=== PATIENT | female | born 1940 | race Caucasian/White ===

== ENCOUNTER 2019-11-21 14:19 | Inpatient (IN) | payer MEDICARE ==
[~2019-11-21] VITALS: Ht 162.6 cm; Wt 71.2 kg
[2019-11-21 14:50] LABS: Source, Urine Catheter
[2019-11-21 14:55] LABS: BASOPHILS ABSOLUTE AUTO 0.05 K/mm3 (0.00-0.23); BASOPHILS PERCENT AUTO 0 % (0-2); EOSINOPHILS ABSOLUTE AUTO 0.02 K/mm3 (0.00-0.68); EOSINOPHILS PERCENT AUTO 0 % (0-6); Hematocrit 50.5 % (33.0-51.0); Hemoglobin 16.7 g/dL (11.5-16.0); IMMATURE GRAN ABSOLUTE AUTO 0.08 K/mm3 (0.00-0.10); IMMATURE GRAN PERCENT AUTO 0 % (0-1); LYMPHOCYTES ABSOLUTE AUTO 1.11 K/mm3 (0.84-5.20); LYMPHOCYTES PERCENT AUTO 6 % (21-46); MONOCYTES ABSOLUTE AUTO 1.33 K/mm3 (0.16-1.47); MONOCYTES PERCENT AUTO 7 % (4-13); Mean Corpuscular HGB 30.3 pg (26.0-34.0); Mean Corpuscular HGB Conc 33.1 g/dL (31.5-36.5); Mean Corpuscular Volume 92 fL (80-100); Mean Platelet Volume 11.1 fL (9.1-12.4); NEUTROPHILS ABSOLUTE AUTO 16.57 K/mm3 (1.96-9.15); NEUTROPHILS PERCENT AUTO 87 % (41-73); Platelet Count 153 K/mm3 (150-400); RDW Coefficient Variation 15.3 % (11.7-14.2); RDW Standard Deviation 51.4 fL (35.1-46.3); Red Blood Cell Count 5.52 M/mm3 (3.80-5.20); White Blood Cell Count 19.16 K/mm3 (4.00-11.30)
[2019-11-21 14:58] LABS: Bilirubin, Urine Neg (Neg); Blood, Urine Neg (Neg); Glucose Qualitative, Urine Neg (Neg); Ketones, Urine 2+ (Neg); Leukocyte Esterase, Urine 3+ (Neg); Nitrite, Urine Neg (Neg); Protein, Urine 1+ (Neg); Urobilinogen, Urine NORM (Normal)
[2019-11-21 15:05] LABS: PCO2 Arterial 31 mmHg (35-45); PO2 Arterial 62 mmHg (80-100); pH Blood Arterial 7.33 (7.35-7.45)
[2019-11-21 15:15] LABS: Appearance, Urine Hazy (Clear); Color, Urine Yellow (P-Yellow)
[2019-11-21 15:16] LABS: Red Blood Cells, Urine 0-2 /hpf (0-2)
[2019-11-21 15:17] LABS: Bacteria Mod /hpf; Mucus Light (0-Heavy); Squamous Epithelial Cells Few /hpf (Few); Trichomonas Few /hpf
[2019-11-21 15:20] LABS: U Amphetamine Screen Not Detected; U Barbituate Screen Not Detected; U Benzodiazapine Screen Not Detected; U Buprenorphine Screen Not Detected; U Cannabinoids Screen Not Detected; U Cocaine Screen Not Detected; U Methadone Screen Not Detected; U Methamphetamine Screen Not Detected; U Opiates Screen Not Detected; U Oxycodone Screen Not Detected; U Phencyclidine Screen Not Detected; U Propoxyphene Screen Not Detected
[2019-11-21 15:22] LABS: Bilirubin, Total 0.7 mg/dL (0.1-1.0); Bun/Creatinine Ratio 40.1 (12.0-20.0); C-REACTIVE PROTEIN, EXT RANGE 9.63 mg/dL (0.000-0.300); Creatinine, Blood 2.27 mg/dL (0.40-1.00); Magnesium, Blood 3.3 mg/dL (1.6-2.4); Potassium, Blood 4.3 mmol/L (3.5-5.5); Troponin I 0.061 ng/mL (0.000-0.040)
[2019-11-21 15:30] LABS: International Normalized Ratio 1.28; Prothrombin Time Results 13.5 Sec (9.7-11.5)
[2019-11-21 17:56] LABS: Adenovirus Not Detected (NOT DETECT); Bordetella pertussis Not Detected (NOT DETECT); Chlamydophila pneumoniae Not Detected (NOT DETECT); Coronavirus 229E Not Detected (NOT DETECT); Coronavirus HKU1 Not Detected (NOT DETECT); Coronavirus NL63 Not Detected (NOT DETECT); Coronavirus OC43 Not Detected (NOT DETECT); Human Metapneumovirus Not Detected (NOT DETECT); Human Rhinovirus/Enterovirus Not Detected (NOT DETECT); Influenza A/2009-H1 Not Detected (NOT DETECT); Influenza A/H1 Not Detected (NOT DETECT); Influenza A/H3 Not Detected (NOT DETECT); Influenza B Not Detected (NOT DETECT); Mycoplasma pneumoniae Not Detected (NOT DETECT); Parainfluenza Virus 1 Not Detected (NOT DETECT); Parainfluenza Virus 2 Not Detected (NOT DETECT); Parainfluenza Virus 3 Not Detected (NOT DETECT); Parainfluenza Virus 4 Not Detected (NOT DETECT); Respiratory Syncytial Virus Not Detected (NOT DETECT)
--- NOTE | 2019-11-21 18:26 | NUR ---
BROUGHT TO PCU 1 BY SWEET PICKLE MAKER. ROBERT DURING TRANSFER FROM [facility] TO [facility]. EYES OPEN BUT DOES NOT ANSWER QUESTIONS OR FOLLOW COMMANDS. ROLLED TO OBSERVE SKIN. PHOTOS TAKEN TO POSTERIOR LEGS AND BUTTOX. EXCORIATION TO UPPER THIGHS AND BUTTOX, LARGE PRESSURE ULCER TO LEFT BUTTOX WITH SCAB COVERING ULCER INTACT. PLACED BARRIER CREAM AND CLEAN ATTENDS, SARGENT CATH IN PLACE WITH TEMP PROB SARGENT.
[2019-11-22 03:43] LABS: BASOPHILS ABSOLUTE AUTO 0.04 K/mm3 (0.00-0.23); BASOPHILS PERCENT AUTO 0 % (0-2); EOSINOPHILS ABSOLUTE AUTO 0.14 K/mm3 (0.00-0.68); EOSINOPHILS PERCENT AUTO 1 % (0-6); Hematocrit 41.8 % (33.0-51.0); Hemoglobin 13.5 g/dL (11.5-16.0); IMMATURE GRAN ABSOLUTE AUTO 0.06 K/mm3 (0.00-0.10); IMMATURE GRAN PERCENT AUTO 1 % (0-1); LYMPHOCYTES ABSOLUTE AUTO 2.15 K/mm3 (0.84-5.20); LYMPHOCYTES PERCENT AUTO 16 % (21-46); MONOCYTES ABSOLUTE AUTO 1.08 K/mm3 (0.16-1.47); MONOCYTES PERCENT AUTO 8 % (4-13); Mean Corpuscular HGB 29.7 pg (26.0-34.0); Mean Corpuscular HGB Conc 32.3 g/dL (31.5-36.5); Mean Corpuscular Volume 92 fL (80-100); Mean Platelet Volume 11.2 fL (9.1-12.4); NEUTROPHILS ABSOLUTE AUTO 9.72 K/mm3 (1.96-9.15); NEUTROPHILS PERCENT AUTO 74 % (41-73); Platelet Count 106 K/mm3 (150-400); RDW Coefficient Variation 15.1 % (11.7-14.2); RDW Standard Deviation 50.8 fL (35.1-46.3); Red Blood Cell Count 4.55 M/mm3 (3.80-5.20); White Blood Cell Count 13.19 K/mm3 (4.00-11.30)
[2019-11-22 04:07] LABS: Magnesium, Blood 2.4 mg/dL (1.6-2.4)
[2019-11-22 04:12] LABS: Troponin I 0.102 ng/mL (0.000-0.040)
[2019-11-22 04:29] LABS: Albumin, Blood 2.8 g/dL (3.4-5.0); Albumin/Globulin Ratio 0.9 (0.8-1.8); Bilirubin, Total 0.5 mg/dL (0.1-1.0); Bun/Creatinine Ratio 46.7 (12.0-20.0); Calcium, Blood 8.3 mg/dL (8.5-10.1); Creatinine, Blood 1.5 mg/dL (0.40-1.00); Globulin, Blood 3.1 g/dL (2.2-4.0); Potassium, Blood 3.2 mmol/L (3.5-5.5)
[2019-11-22 04:30] LABS: Total Protein, Blood 5.9 g/dL (6.4-8.2)
--- NOTE | 2019-11-22 06:32 | NUR ---
SHIFT SUMMARY PT OPENS EYES SPONTANEOUSLY. SAYS SOME WORDS, ANSWERING SOME Q's, BUT NOT ANSWERING Q's APPROPRIATELY. LUNG SOUNDS DIM. SPO2 > 92% ON RA. MONITOR SHOWS SR, HR 70's. TEMP SARGENT DRAINING DARK TEA COLORED URINE. SKIN IS VERY DIRTY T/O. PARTIAL SPONGE BATH DONE BY COMMUNITY CENTER WORKER THIS SHIFT. SKIN EXCORIATED T/O BUTTOCKS AND GROIN. PRESSURE ULCER NOTED TO R BUTTOCKS. SEE PHOTOS IN CHART. R FOOT DROP NOTED. PT BEDRIDDEN AT THIS TIME, UNCERTAIN OF BASELINE MOBILITY. NS GTT INFUSING @ 75 MLS/HR. D5 GTT INFUSING @ 250 MLS/HR, PLACED ON STANDBY AT APPROX 0000 W/ OKAY FROM MD PARTIDA TO LEAVE ON STANDBY D/T CBG's 190's. CBG THEN 70's UPON 0600 ASSESSMENT W/ D5 GTT TURNED BACK ON, INFUSING AT THIS TIME. WILL CONTINUE TO MONITOR AND PROVIDE CARE UNTIL REPORT OFF TO DAY SHIFT RN.
--- NOTE | 2019-11-22 07:00 | NUR ---
ASSUMED CARE AT THIS TIME, RESTING SUPINE IN BED. OPENS EYES TO VOICE, MOANS WITH PHYSICAL STIMULI, ANSWERS YES OR NO QUESTIONS.
--- NOTE | 2019-11-22 08:30 | NUR ---
LFA FIELD START IV RED AND SWOLLEN FROM IV SITE TO MID UPPER ARM. IV SAILINE INFUSING STOPPED AT THIS TIME. IV REMOVED WITH CATH INTACT. PLACED 22G IV TO LEFT HAND NS RESTARTED AT NEW IV SITE. WILL CONTINUE TO MONITOR REDNESS TO LEFT FOREARM.
--- NOTE | 2019-11-22 08:57 | NUR ---
TAKEN TO CT VIA GURNEY BY ENERGY EFFICIENCY SPECIALIST.
--- NOTE | 2019-11-22 12:29 | NUR ---
JIGSAWYER TO ROOM FOR REPOSITIONING. AWAKE AND MOVING ARMS FREELY PER JIGSAWYER. ANSWERS QUESTIONS AND INITIALLY REFUSES TO GIVE FINGER FOR CHEMBG CHECK. APPEARS MORE ALERT THAN THIS MORNING.
--- NOTE | 2019-11-22 17:28 | NUR ---
IN ROOM FOR ROUNDING. PULLING AT TELE LINES, BOTH IV'S PULLED AND LAYING ON BED. NO BLEEDING FROM SITES AT THIS TIME, IV CATH INTACT. SOFT RESTRAINTS PLACED ON BILATERAL WRISTS, IV ACCESS X2 ESTABLISHED. ADMITTING PROVIDER NOTIFIED AND RESTRAINT ORDER PLACED. APPEARS TO BE TALKING TO SELF, ANSWERS QUESTIONS BUT APPEARS CONFUSED. WILL CONTINUE TO MONITOR.
--- NOTE | 2019-11-22 17:57 | NUR ---
SHIFT SUMMARY; MOVED TO [facility] PRESSURE ROOM THIS AM AND PLACED ON AIRBORN COVID PRECAUTIONS PER DR. PRINCE. SON STATED TO [employer] PUENTES VIA PHONE THAT HE WAS TREATED AND HOSPTIALIZED FOR COVID. AFTER FURTHER DISCUSSION BY DELORIS THIS COULD NOT BE CONFIRMED, SON STATES THE TEST ONLY TOOK 3 HOURS. WILL REMAIN ON COVID PRECAUTIONS PER DR. PRINCE UNITL PTS COVID TEST IS RESULTED. BED BATH DURING AM WITH DATA ANALYSIS ASSISTANT. BARRIER CREAM TO BUTTOX. PRESSURE ULCER TO LEFT BUTTOX WEAPING SERIOUSANGIOUS FLUID. UNABLE TO PLACE MEPILEX DUE TO NOT STICKING. Q2H TURNING MAINTAINED THROUGHOUT SHIFT. TALKING TO SELF AND MUMBLING CONVERSATIONS IN AFTERNOON. ANSWERS QUESTIONS WITH CONFUSION. PULLING AT LINES IN LATER AFTERNOON AND PULLED BOTH IV'S OUT. IV ACCESS RESTABLISHED AND PLACED IN SOFT RESTRAINTS FOR SAFTEY. SWALLOW STUDY BY SPEECH THERAPY COMPLETE AND DIET ORDER PLACED. POSITIVE BLOOD CULTURES DISCUSSED WITH DR. PRINCE TODAY AND PT TO REMAIN ON CURRENT ANTIBIOTICS. TEMP PROBE SARGENT REMAINS IN PLACE DRAINING CLOWDY STRAW COLORED URINE. NS GTT AT 75ML/HR, D5 GTT @ 250ML/HR, AND POTASSIUM 30MM MIXED WITH 500ML INFUSING AT 102 ML/HR AT SHIFT CHANGE.
--- NOTE | 2019-11-23 00:05 | NUR ---
11/22/2019 -19:45 - REPORT RECEIVED FROM CHRIS CABALLERO. PT IS AWAKE, CONFUSED, DISORIENTED. RIGHT WRIST BLOODY WITH IV CATHETER LAYING ON BED. PT CLEANED UP, IV RESTART ATTEMPTED. PT DENIES PAIN, SOB, PT HAS SARGENT DRAINING CLEAR YELLOW URINE WITH SEDIMENT.
[2019-11-23 04:34] LABS: BASOPHILS ABSOLUTE AUTO 0.03 K/mm3 (0.00-0.23); BASOPHILS PERCENT AUTO 0 % (0-2); EOSINOPHILS PERCENT AUTO 2 % (0-6); Hematocrit 35.5 % (33.0-51.0); Hemoglobin 11.9 g/dL (11.5-16.0); IMMATURE GRAN ABSOLUTE AUTO 0.04 K/mm3 (0.00-0.10); IMMATURE GRAN PERCENT AUTO 0 % (0-1); LYMPHOCYTES ABSOLUTE AUTO 1.99 K/mm3 (0.84-5.20); LYMPHOCYTES PERCENT AUTO 21 % (21-46); MONOCYTES ABSOLUTE AUTO 0.91 K/mm3 (0.16-1.47); MONOCYTES PERCENT AUTO 10 % (4-13); Mean Corpuscular HGB 30.2 pg (26.0-34.0); Mean Corpuscular HGB Conc 33.5 g/dL (31.5-36.5); Mean Corpuscular Volume 90 fL (80-100); Mean Platelet Volume 11.7 fL (9.1-12.4); NEUTROPHILS PERCENT AUTO 67 % (41-73); Platelet Count 88 K/mm3 (150-400); RDW Coefficient Variation 15.1 % (11.7-14.2); RDW Standard Deviation 50.5 fL (35.1-46.3); Red Blood Cell Count 3.94 M/mm3 (3.80-5.20); White Blood Cell Count 9.47 K/mm3 (4.00-11.30)
[2019-11-23 04:50] LABS: Anion Gap 6 mmol/L (6-16); Blood Urea Nitrogen 33 mg/dL (8-24); Bun/Creatinine Ratio 35.5 (12.0-20.0); CO2, Blood 23 mmol/L (21-32); Calcium, Blood 7.7 mg/dL (8.5-10.1); Chloride, Blood 120 mmol/L (98-108); Creatinine, Blood 0.93 mg/dL (0.40-1.00); Glomerular Filtration Rate >60 (60-); Glucose, Blood 110 mg/dL (70-99); Potassium, Blood 3.1 mmol/L (3.5-5.5); Sodium, Blood 149 mmol/L (136-145)
--- NOTE | 2019-11-23 06:46 | NUR ---
VSS, PT IS CONFUSED TO PLACE AND TIME. RESTRAINTS IN PLACE, PT HAS PULLED OUT IV'S. NO COMPLICATIONS FROM RESTRAINTS. HRR, LUNG SOUNDS CLEAR, STABLE OXYGEN SATURATION ON ROOM AIR. ABDOMEN ROUND, SOFT, NON-TENDER WITH BOWEL TONES NOTED IN 4 QUADRANTS. SARGENT CATHETER DRAINING CLOUDY YELLOW URINE, QS. POWER GLIDE IV PLACED IN RIGHT UPPER ARM, INFUSES WELL, WITH GOOD BLOOD RETURN NOTED. POTASSIUM WAS 3.1 THIS MORNING, DR. SANCHEZ WAS NOTIFIED, ORDERS FOR SUPPLEMENTAL IV KCL RECEIVED. PT REMAINS IN AIRBORNE ISOLATION FOR R/O COVID19, BED IN LOW POSITION, CALL PATRICK WITHIN REACH.
--- NOTE | 2019-11-23 07:35 | NUR ---
ASSUMED CARE: PT RESTING QUIETLY AT THIS TIME. WRIST RESTRAINTS IN PLACE. NO ACUTE NEEDS NOTED AT PRESENT
--- NOTE | 2019-11-23 11:00 | NUR ---
SPEECH THERAPY WENT INTO ROOM TO EVALUATE. STATES SHE UNCLAMPED ONE OF THE RESTRAINTS SO THAT PT COULD ASSIST WITH DRINKING. FORGOT TO REATTACH. WHEN RN WENT INTO ROOM PT WAS FIDDLING WITH IV LINES. RESTRAINTS REPLACED TO BILATERAL WRISTS.
--- NOTE | 2019-11-23 18:05 | NUR ---
SHIFT SUMMARY: PT REMAINS IN BILATERAL WRIST RESTRAINTS DUE TO CONFUSION AND PULLING AT IV LINES. SHE IS PLEASANT BUT CONFUSED. REPOSITIONING Q2. MEDICAL STATUS BUT AWAITING COVID RULE OUT. FAMILY HAS BEEN UPDATED THIS SHIFT. COCCYX DRESSING CHANGED THIS SHIFT. NO ACUTE NEEDS OR CONCERNS AT THIS TIME.
[2019-11-24 06:13] LABS: BASOPHILS ABSOLUTE AUTO 0.03 K/mm3 (0.00-0.23); BASOPHILS PERCENT AUTO 0 % (0-2); EOSINOPHILS PERCENT AUTO 2 % (0-6); Hematocrit 37.5 % (33.0-51.0); Hemoglobin 12.2 g/dL (11.5-16.0); IMMATURE GRAN ABSOLUTE AUTO 0.06 K/mm3 (0.00-0.10); IMMATURE GRAN PERCENT AUTO 1 % (0-1); LYMPHOCYTES ABSOLUTE AUTO 1.97 K/mm3 (0.84-5.20); LYMPHOCYTES PERCENT AUTO 21 % (21-46); MONOCYTES ABSOLUTE AUTO 1.03 K/mm3 (0.16-1.47); MONOCYTES PERCENT AUTO 11 % (4-13); Mean Corpuscular HGB 30.1 pg (26.0-34.0); Mean Corpuscular HGB Conc 32.5 g/dL (31.5-36.5); Mean Platelet Volume 11.9 fL (9.1-12.4); NEUTROPHILS PERCENT AUTO 65 % (41-73); Platelet Count 81 K/mm3 (150-400); RDW Coefficient Variation 15.6 % (11.7-14.2); RDW Standard Deviation 52.8 fL (35.1-46.3); Red Blood Cell Count 4.05 M/mm3 (3.80-5.20); White Blood Cell Count 9.39 K/mm3 (4.00-11.30)
[2019-11-24 06:16] LABS: Mean Corpuscular Volume 93 fL (80-100)
[2019-11-24 06:27] LABS: Anion Gap 3 mmol/L (6-16); Blood Urea Nitrogen 19 mg/dL (8-24); Bun/Creatinine Ratio 25.2 (12.0-20.0); CO2, Blood 25 mmol/L (21-32); Calcium, Blood 8.2 mg/dL (8.5-10.1); Chloride, Blood 126 mmol/L (98-108); Creatinine, Blood 0.75 mg/dL (0.40-1.00); Glomerular Filtration Rate >60 (60-); Glucose, Blood 84 mg/dL (70-99); Potassium, Blood 3.7 mmol/L (3.5-5.5); Sodium, Blood 154 mmol/L (136-145)
--- NOTE | 2019-11-24 07:31 | NUR ---
SHIFT SUMMARY PATIENT VERY CONFUSED AND FORGETFUL. PATIENT DIFFICULT TO REORIENT. PATIENT OFTEN CHANGES THOUGHTS AND IDEAS IN THE MIDDLE OF HER SENTENCES WITHOUT FULLY EXPRESSING IT. PATIENT APPEARED TO BE AWAKE MOST OF THE NIGHT LAST NIGHT. VITAL SIGNS CHARTED. REPORT GIVEN TO ONCOMING RN.
--- NOTE | 2019-11-24 09:01 | NUR ---
NOTE AFTER RARE/ENDANGERED SPECIES SPECIALIST HELPED PT TO EAT. AIDE LEFT HER SITTING UP POST ORAL INTAKE FOR ASPIRATION PRECAUTIONS. PT WITH WRIST RESTRAINTS ON WAS FOUND TO HAVE RIPPED HER NAME BAND OFF AND HAD PULLED THE STAT LOCK OF HER SARGENT OFF HER RIGHT LEG. REAPPLIED NAME BAND TO LEFT ANKLE AND REAPPLIED STAT LOCK TO SARGENT PLACED IT ON LEFT INNER THIGH AND TUCKED BLANKETS IN AROUND HIPS. RECLINED HER TO 45 DEGREES AND GOT HER TALKING ABOUT THE TV SHOW SHE WAS WATCHING. CONTINUE POT.
[2019-11-25 05:15] LABS: BASOPHILS ABSOLUTE AUTO 0.06 K/mm3 (0.00-0.23); BASOPHILS PERCENT AUTO 1 % (0-2); EOSINOPHILS ABSOLUTE AUTO 0.28 K/mm3 (0.00-0.68); EOSINOPHILS PERCENT AUTO 3 % (0-6); Hematocrit 39.3 % (33.0-51.0); Hemoglobin 13.3 g/dL (11.5-16.0); IMMATURE GRAN ABSOLUTE AUTO 0.11 K/mm3 (0.00-0.10); IMMATURE GRAN PERCENT AUTO 1 % (0-1); LYMPHOCYTES ABSOLUTE AUTO 2.06 K/mm3 (0.84-5.20); LYMPHOCYTES PERCENT AUTO 22 % (21-46); MONOCYTES ABSOLUTE AUTO 1.18 K/mm3 (0.16-1.47); MONOCYTES PERCENT AUTO 13 % (4-13); Mean Corpuscular HGB 30.1 pg (26.0-34.0); Mean Corpuscular HGB Conc 33.8 g/dL (31.5-36.5); Mean Platelet Volume 11.9 fL (9.1-12.4); NEUTROPHILS ABSOLUTE AUTO 5.68 K/mm3 (1.96-9.15); NEUTROPHILS PERCENT AUTO 61 % (41-73); Platelet Count 88 K/mm3 (150-400); RDW Coefficient Variation 15.1 % (11.7-14.2); RDW Standard Deviation 49.2 fL (35.1-46.3); Red Blood Cell Count 4.42 M/mm3 (3.80-5.20); White Blood Cell Count 9.37 K/mm3 (4.00-11.30)
[2019-11-25 05:16] LABS: Mean Corpuscular Volume 89 fL (80-100)
[2019-11-25 05:26] LABS: Anion Gap 7 mmol/L (6-16); Blood Urea Nitrogen 13 mg/dL (8-24); Bun/Creatinine Ratio 21.1 (12.0-20.0); CO2, Blood 24 mmol/L (21-32); Calcium, Blood 7.9 mg/dL (8.5-10.1); Chloride, Blood 116 mmol/L (98-108); Creatinine, Blood 0.62 mg/dL (0.40-1.00); Glomerular Filtration Rate >60 (60-); Glucose, Blood 83 mg/dL (70-99); Sodium, Blood 147 mmol/L (136-145)
--- NOTE | 2019-11-25 06:38 | NUR ---
SHIFT SUMMARY PATIENT CONTINUES TO BE CONFUSED. PATIENT DIFFICULT TO HOLD A CONVERSATION WITH DUE TO PATIENT'S THOUGHTS CHANGING IN THE MIDDLE OF SENTENCES. PATIENT AWAKE MOST OF THE NIGHT, OCCATIONALY PLEASENTLY TALKING TO HERSELF. [employer] APPEARED TO FALL ASLEEP AROUND APPROX 0500 AND HAS BEEN ASLEEP SINCE. WILL CONTINUE TO MONITOR PATIENT AND REPORT TO ONCOMING RN.
[2019-11-26 05:06] LABS: BASOPHILS ABSOLUTE AUTO 0.04 K/mm3 (0.00-0.23); BASOPHILS PERCENT AUTO 0 % (0-2); EOSINOPHILS ABSOLUTE AUTO 0.28 K/mm3 (0.00-0.68); EOSINOPHILS PERCENT AUTO 3 % (0-6); Hematocrit 41.7 % (33.0-51.0); Hemoglobin 13.8 g/dL (11.5-16.0); IMMATURE GRAN ABSOLUTE AUTO 0.07 K/mm3 (0.00-0.10); IMMATURE GRAN PERCENT AUTO 1 % (0-1); LYMPHOCYTES ABSOLUTE AUTO 1.88 K/mm3 (0.84-5.20); LYMPHOCYTES PERCENT AUTO 17 % (21-46); MONOCYTES ABSOLUTE AUTO 1.54 K/mm3 (0.16-1.47); MONOCYTES PERCENT AUTO 14 % (4-13); Mean Corpuscular HGB 30.2 pg (26.0-34.0); Mean Corpuscular HGB Conc 33.1 g/dL (31.5-36.5); Mean Corpuscular Volume 91 fL (80-100); Mean Platelet Volume 11.6 fL (9.1-12.4); NEUTROPHILS ABSOLUTE AUTO 7.14 K/mm3 (1.96-9.15); NEUTROPHILS PERCENT AUTO 65 % (41-73); Platelet Count 116 K/mm3 (150-400); RDW Coefficient Variation 15.3 % (11.7-14.2); RDW Standard Deviation 50.5 fL (35.1-46.3); Red Blood Cell Count 4.57 M/mm3 (3.80-5.20); White Blood Cell Count 10.95 K/mm3 (4.00-11.30)
[2019-11-26 05:24] LABS: Anion Gap 4 mmol/L (6-16); Blood Urea Nitrogen 14 mg/dL (8-24); Bun/Creatinine Ratio 18.7 (12.0-20.0); CO2, Blood 31 mmol/L (21-32); Calcium, Blood 8.1 mg/dL (8.5-10.1); Chloride, Blood 111 mmol/L (98-108); Creatinine, Blood 0.75 mg/dL (0.40-1.00); Glomerular Filtration Rate >60 (60-); Glucose, Blood 107 mg/dL (70-99); Potassium, Blood 3.9 mmol/L (3.5-5.5); Sodium, Blood 146 mmol/L (136-145)
--- NOTE | 2019-11-26 05:48 | NUR ---
SHIFT SUMMARY: PATIENT CONFUSED, SOMETIMES CANNOT TELL US WHO SHE IS, TRYING CONTINUOUSLY TO PULL AT LINES AND TUBES. RESTRAINTS IN PLACE WITH ALL SAFETY CHECKS PERFORMED. PATIENT VSS, CALL LIGHT WITHIN REACH, BED LOW AND LOCKED WITH EXIT ALARM ON.
--- NOTE | 2019-11-26 19:44 | NUR ---
SHIFT SUMMARY PT A&Ox1; CONFUSED AND NONSENSICAL. PT RESTING IN BED; REPOSITIONED Q2 FOR PRESSURE ULCER PREVENTION AND COMFORT. PT IN BILATERAL WRIST RESTRAINTS; FOR IV LINE/SARGENT PROTECTION. PT DENIES PAIN, CHEST PRESSURE, SOB, NAUEA AND DIZZINESS. PT PULLED SARGENT CATHETER OUT; NOTIFIED DR PRINCE; ORDERS TO REPLACE SARGENT IF PATIENT IS UNABLE TO VOID OR IS INCONTINENT. VSS. NO OTHER ACUTE CHANGES NOTED DURING SHIFT. REPORT GIVEN TO ONCOMING RN.
[2019-11-27 04:02] LABS: BASOPHILS ABSOLUTE AUTO 0.04 K/mm3 (0.00-0.23); BASOPHILS PERCENT AUTO 0 % (0-2); EOSINOPHILS ABSOLUTE AUTO 0.36 K/mm3 (0.00-0.68); EOSINOPHILS PERCENT AUTO 3 % (0-6); Hematocrit 40.1 % (33.0-51.0); Hemoglobin 13.1 g/dL (11.5-16.0); IMMATURE GRAN ABSOLUTE AUTO 0.05 K/mm3 (0.00-0.10); IMMATURE GRAN PERCENT AUTO 1 % (0-1); LYMPHOCYTES ABSOLUTE AUTO 2.02 K/mm3 (0.84-5.20); LYMPHOCYTES PERCENT AUTO 18 % (21-46); MONOCYTES PERCENT AUTO 14 % (4-13); Mean Corpuscular HGB 30.3 pg (26.0-34.0); Mean Corpuscular HGB Conc 32.7 g/dL (31.5-36.5); Mean Corpuscular Volume 93 fL (80-100); Mean Platelet Volume 11.9 fL (9.1-12.4); NEUTROPHILS ABSOLUTE AUTO 7.03 K/mm3 (1.96-9.15); NEUTROPHILS PERCENT AUTO 64 % (41-73); Platelet Count 128 K/mm3 (150-400); RDW Coefficient Variation 15.2 % (11.7-14.2); RDW Standard Deviation 51.9 fL (35.1-46.3); Red Blood Cell Count 4.33 M/mm3 (3.80-5.20)
[2019-11-27 04:21] LABS: Anion Gap 4 mmol/L (6-16); Blood Urea Nitrogen 15 mg/dL (8-24); Bun/Creatinine Ratio 21.7 (12.0-20.0); CO2, Blood 29 mmol/L (21-32); Calcium, Blood 8.1 mg/dL (8.5-10.1); Chloride, Blood 111 mmol/L (98-108); Creatinine, Blood 0.69 mg/dL (0.40-1.00); Glomerular Filtration Rate >60 (60-); Glucose, Blood 98 mg/dL (70-99); Potassium, Blood 3.2 mmol/L (3.5-5.5); Sodium, Blood 144 mmol/L (136-145)
--- NOTE | 2019-11-27 18:35 | NUR ---
SHIFT SUMMARY PT A&Ox2; PT ORIENTED TO SELF AND SURROUNDING. PT CONTINUES TO HAVE NONSENSICAL THOUGHTS; HOWEVER MORE OF HER CONVERSATIONS MAKE SENSE. PT ASKING CONSTANTLY FOR CIGARETTES, AND ASKING STAFF TO TAKE HER TO THE CORNER STORE FOR CIGARETTES. PT DENIES PAIN, CHEST PAIN, SOB, DIZZINES, AND NAUSEA T/O SHIFT. PT RECEIVED PO POTASSIUM THIS AFTERNOON. VSS. NO OTHER ACUTE CHANGES NOTED DURING SHIFT. WILL CONTINUE TO MONITOR UNITL REPORT GIVEN TO ONCOMING RN.
--- NOTE | 2019-11-28 05:30 | NUR ---
SHIFT SUMMARY: PATIENT DID WELL THIS SHIFT, VSS, RADHA TO ASSIST WITH TURNS AND USES THE TRAPEEZ TO SHIFT UP INTO BED. WAS ABLE TO SLEEP SOME. BED LOW AND LOCKED, WITH EXIT ALARM ON , CALL LIGHT WITHIN REACH.
[2019-11-28] MEDS ORDERED: ACETAMINOPHEN PR (08:50)
[2019-11-28] MEDS ORDERED: BISA10S PR (08:51)
[2019-11-28] MEDS ORDERED: FAMO40 PO (08:52)
[2019-11-28] MEDS ORDERED: Culturelle1 CAP PO (08:54)
[2019-11-28] MEDS ORDERED: NICO21TP TOP (08:55)
[2019-11-28] MEDS ORDERED: LEVO750 PO (08:55)
[2019-11-28] MEDS ORDERED: Aspirin325 MG PO (08:56)
[2019-11-28] MEDS ORDERED: ONDA4ODT MM (08:56)
[2019-11-28] MEDS ORDERED: ATOR40TA PO (08:57)
--- NOTE | 2019-11-28 11:02 | NUR ---
DC'D TO HOME VIA PERSONAL WHEELCHAIR TO SON. MEDS CALLED INTO [facility] IN [place]. WRITTIN AND VERBAL INSTRUCTIONS GIVEN TO SON WITH CLEAR UNDERSTANDING.
== END 2019-11-28 09:58 | disposition home or self-care (01) | DRG 871 ==
LOC: ER 14:19 → PCU 16:44
PROVIDERS: Emergency Medicine; ADMIT Family Medicine
PROC: 8E0ZXY6 Isolation (ICD-10-PCS; principal; 2019-11-21)
DX: A41.59 Other Gram-negative sepsis (principal); G93.41 Metabolic encephalopathy; E87.0 Hyperosmolality and hypernatremia; N39.0 Urinary tract infection, site not specified; N17.9 Acute kidney failure, unspecified; E86.0 Dehydration; Z86.12 Personal history of poliomyelitis; F17.210 Nicotine dependence, cigarettes, uncomplicated; I73.9 Peripheral vascular disease, unspecified; Z86.73 Personal history of transient ischemic attack (TIA), and cerebral infarction without residual deficits; J44.9 Chronic obstructive pulmonary disease, unspecified; E87.6 Hypokalemia; D69.6 Thrombocytopenia, unspecified; Z79.82 Long term (current) use of aspirin; R79.89 Other specified abnormal findings of blood chemistry
CPT/HCPCS: 0099U; 36415; 36600; 51702; 70450; 71045; 80048; 80053; 81001; 82803; 82947; 83605; 83735; 83880; 84145; 84484; 85025; 85610; 86140; 87040; 87077; 87086; 87186; 92526; 92610; 93005; 93010; 96365-59; 99285-25; A9270-GY; C1751; J0696; J1650; J3480; J7030; J7060; J7070; U0002